=== PATIENT | female | born 1990 | race Two or more races ===

== ENCOUNTER 2019-01-12 00:49 | Emergency (ER) | payer OTHER ==
[~2019-01-12] VITALS: Ht 170.2 cm; Wt 58.1 kg
[2019-01-12] MEDS ORDERED: SYNTHROID50 MCG (00:57)
[2019-01-12] MEDS ORDERED: DOXYCYCLINE HY100 MG PO (10:26)
== END 2019-01-12 10:46 | disposition home or self-care (01) ==
LOC: ER 00:49
DX: O03.9 Complete or unspecified spontaneous abortion without complication (principal)

== ENCOUNTER → 2020-06-07 | Outpatient (CLI) | payer OTHER ==
[~2020-06-07] MED LIST: DOXYCYCLINE HY100 MG PO; SYNTHROID50 MCG
== END | disposition home or self-care (01) ==
LOC: PRENATAL 08:13
PROVIDERS: ATTEND Obstetrics & Gynecology Maternal & Fetal Medicine
DX: O35.0XX1 Maternal care for (suspected) central nervous system malformation in fetus, fetus 1 (principal); O26.843 Uterine size-date discrepancy, third trimester; O99.891 Other specified diseases and conditions complicating pregnancy; Z36.89 Encounter for other specified antenatal screening; Z3A.34 34 weeks gestation of pregnancy

== ENCOUNTER 2020-07-07 16:20 | Inpatient (IN) | payer OTHER ==
[~2020-07-07] VITALS: Ht 170.2 cm; Wt 74.4 kg
[2020-07-07] MEDS ORDERED: PRENATAL + DHA1 EAC1 PO (22:22)
[2020-07-11] MEDS ORDERED: KETO10TA2 PO (09:33)
== END 2020-07-11 09:51 | disposition home or self-care (01) | DRG 787 ==
LOC: O/R 16:20 → LDR 16:20 → O/R 07-08 09:55 → OB/GYN 07-08 13:53
PROVIDERS: ADMIT Obstetrics & Gynecology; ATTEND Obstetrics & Gynecology
PROC: 4A1HXFZ Monitoring of Products of Conception, Cardiac Rhythm, External Approach (ICD-10-PCS; 2020-07-07)
PROC: 10D00Z1 Extraction of Products of Conception, Low, Open Approach (ICD-10-PCS; principal; 2020-07-08 08:00)
DX: O82 Encounter for cesarean delivery without indication (principal); O41.03X0 Oligohydramnios, third trimester, not applicable or unspecified; Z3A.39 39 weeks gestation of pregnancy; Z37.0 Single live birth; Z20.828 Contact with and (suspected) exposure to other viral communicable diseases

== ENCOUNTER 2021-08-21 10:18 | Emergency (ER) | payer OTHER ==
[~2021-08-21] VITALS: Ht 170.2 cm; Wt 56.2 kg
[~2021-08-21 10:18] MED LIST changes: +KETO10TA2 PO; +PRENATAL + DHA1 EAC1 PO
== END 2021-08-21 17:33 | disposition home or self-care (01) ==
LOC: ER 10:18
DX: N39.0 Urinary tract infection, site not specified (principal); B96.20 Unspecified Escherichia coli [E. coli] as the cause of diseases classified elsewhere

== ENCOUNTER 2022-10-08 09:04 | Emergency (ER) | payer OTHER ==
[~2022-10-08] VITALS: Ht 170.2 cm; Wt 62.6 kg
[2022-10-08] MEDS ORDERED: PRENATABS RX T1 EACH (09:16)
[2022-10-08] MEDS ORDERED: AMOX1TAB5 (09:16)
== END 2022-10-08 13:35 | disposition home or self-care (01) ==
LOC: ER 09:04
DX: O20.9 Hemorrhage in early pregnancy, unspecified (principal); Z3A.11 11 weeks gestation of pregnancy

== ENCOUNTER 2022-11-23 09:27 | Emergency (ER) | payer OTHER ==
[~2022-11-23] VITALS: Ht 170.2 cm; Wt 65.3 kg
[~2022-11-23 09:27] MED LIST changes: +AMOX1TAB5; +PRENATABS RX T1 EACH
[2022-11-23] MEDS ORDERED: SYNTHROID75 MCG PO (09:46)
== END 2022-11-23 12:07 | disposition home or self-care (01) ==
LOC: ER 09:27
DX: O20.8 Other hemorrhage in early pregnancy (principal); Z3A.18 18 weeks gestation of pregnancy; E03.9 Hypothyroidism, unspecified

== ENCOUNTER 2022-12-06 11:03 | Outpatient (CLI) | payer OTHER ==
[~2022-12-06 11:03] MED LIST changes: +SYNTHROID75 MCG PO
== END 2022-12-06 12:59 | disposition home or self-care (01) ==
LOC: PRENATAL 11:03
PROVIDERS: ATTEND Obstetrics & Gynecology Maternal & Fetal Medicine
DX: O35.9XX0 Maternal care for (suspected) fetal abnormality and damage, unspecified, not applicable or unspecified (principal); O35.3XX0 Maternal care for (suspected) damage to fetus from viral disease in mother, not applicable or unspecified; O99.280 Endocrine, nutritional and metabolic diseases complicating pregnancy, unspecified trimester; O26.859 Spotting complicating pregnancy, unspecified trimester; Z3A.20 20 weeks gestation of pregnancy

== ENCOUNTER 2023-01-21 14:41 | Outpatient (CLI) | payer OTHER | END 2023-01-21 16:00 | disposition home or self-care (01) | LOC: OBS/DEL 14:41 → LDR 14:54 → OBS/DEL 15:09 | PROVIDERS: ATTEND Student in an Organized Health Care Education/Training Program | DX: O26.892 Other specified pregnancy related conditions, second trimester (principal); R10.2 Pelvic and perineal pain; Z3A.26 26 weeks gestation of pregnancy ==

== ENCOUNTER 2023-03-09 13:53 | Outpatient (CLI) | payer OTHER | END 2023-03-09 17:19 | disposition home or self-care (01) | LOC: PRENATAL 13:53 | PROVIDERS: ATTEND Obstetrics & Gynecology Maternal & Fetal Medicine | DX: O26.849 Uterine size-date discrepancy, unspecified trimester (principal); O36.8199 Decreased fetal movements, unspecified trimester, other fetus; O99.280 Endocrine, nutritional and metabolic diseases complicating pregnancy, unspecified trimester ==

== ENCOUNTER 2023-04-11 10:23 | Inpatient (IN) | payer OTHER ==
[~2023-04-11] VITALS: Ht 170.2 cm; Wt 2.7 kg
[2023-04-14] MEDS ORDERED: COLACE100 MG PO (12:22)
[2023-04-14] MEDS ORDERED: PERCOCET 5-3251 EACH PO (12:22)
[2023-04-14] MEDS ORDERED: SIMETHICONE80 MG PO (12:22)
[2023-04-14] MEDS ORDERED: IBU800 MG PO (12:22)
== END 2023-04-14 14:04 | disposition home or self-care (01) | DRG 788 ==
LOC: O/R 04-12 05:31 → OB/GYN 04-12 10:16
PROVIDERS: Obstetrics & Gynecology; ADMIT Obstetrics & Gynecology; ATTEND Obstetrics & Gynecology
PROC: 4A1HXCZ Monitoring of Products of Conception, Cardiac Rate, External Approach (ICD-10-PCS; 2023-04-12)
PROC: 10D00Z1 Extraction of Products of Conception, Low, Open Approach (ICD-10-PCS; principal; 2023-04-12 11:45)
DX: O34.211 Maternal care for low transverse scar from previous cesarean delivery (principal); Z3A.38 38 weeks gestation of pregnancy; Z37.0 Single live birth; Z20.822 Contact with and (suspected) exposure to COVID-19

== ENCOUNTER 2025-02-12 05:18 | Day surgery (SDC) | payer OTHER ==
[2025-02-09 10:45] LABS: PH,URINE 5.5 (5.0-8.0); URINE APPEARANCE Clear; URINE BILIRRUBIN Negative (NEGATIVE); URINE BLOOD Small; URINE COLOR Yellow; URINE GLUCOSE Negative (NEGATIVE); URINE KETONE Negative (NEGATIVE); URINE LEUKOCYTE Negative; URINE NITRATE Negative; URINE PROTEIN Negative (NEGATIVE); URINE UROBILINOGEN 0.2 E.U./dl
[2025-02-09 10:46] LABS: URINE BACTERIA 36.6 uL (0.0-1933); URINE EPITHELIAL CELLS 2.8 uL (0.0-38.8); URINE RBC 6.3 uL (0.0-20.8)
[2025-02-09 10:48] LABS: BASO % 0.5 % (0.1-1.2); EOS # 0.08 (0.04-0.54); HEMATOCRIT 37.2 % (34.1-44.9); HEMOGLOBIN 12.6 g/dL (11.2-15.7); LYMPH # 3.12 (1.18-3.74); LYMPH % 39.3 % (19.3-53.1); MEAN CORPUSCULAR HEMOGLOBIN 29.2 pg (25.6-32.2); MONO # 0.47 (0.24-0.82); MONO % 5.9 % (4.7-12.5); PLATELET COUNT 285 K/uL (163-369); RED BLOOD COUNT 4.32 M/uL (3.93-5.22); RED CELL DISTRIBUTION WIDTH 13.1 % (11.6-14.4)
[2025-02-09 11:05] LABS: INR 0.98; PROTHROMBIN TIME 10.7 SECONDS (9.0-11.5)
[2025-02-09 11:29] LABS: URINE WBC 1.5 uL (0.0-23.2)
[2025-02-09 12:11] LABS: ALBUMIN 3.8 gm/dL (3.4-5.0); BILIRUBIN TOTAL 0.34 mg/dL (0.3-1.2); CALCIUM 8.8 mg/dL (8.5-10.1); CREATININE SERUM 0.71 mg/dL (0.55-1.02); GFR 94.8; GLOBULINA 3.4 G/DL (2.4-3.5); POTASSIUM 4.63 mEq/L (3.5-5.1); TOTAL PROTEIN 7.2 gm/dL (6.4-8.2); TSH 2.43 uIU/mL (0.358-3.74)
[~2025-02-12 05:18] MED LIST changes: +COLACE100 MG PO; +IBU800 MG PO; +PERCOCET 5-3251 EACH PO; +SIMETHICONE80 MG PO
[2025-02-12] MEDS ORDERED: CEFOXITIN SODIUM 2,000 MG VIAL IV ONE (07:08)
[2025-02-12] MEDS ORDERED: POVIDONE-IODINE 118 ML BOTT TOP ONE (07:32)
[2025-02-12] MEDS ORDERED: MORPHINE SULFATE 4 MG/ML VIAL IV PRN (08:30)
[2025-02-12] MEDS ORDERED: PROMETHAZINE HCL 50 MG/ML AMPUL IM ONE (08:30)
[2025-02-12] MEDS ORDERED: NAPR500T14 PO (08:33)
[2025-02-12] MEDS ORDERED: DOXYCYCLINE HY100 MG PO (08:33)
== END 2025-02-12 15:20 | disposition home or self-care (01) ==
LOC: CIR.AMB 05:18
PROVIDERS: ATTEND Obstetrics & Gynecology
DX: D25.0 Submucous leiomyoma of uterus (principal); N84.0 Polyp of corpus uteri; N92.0 Excessive and frequent menstruation with regular cycle